=== PATIENT | female | born 1950 | race Caucasian/White ===

== ENCOUNTER 2024-10-12 12:20 | Day surgery (SDC) | payer MEDICARE ==
[~2024-10-12] VITALS: Ht 154.9 cm; Wt 54.9 kg
[~2024-10-12 12:20] MED LIST: CALC1TAB26 PO; D-50CAP PO; ESTR62CR VG; FERR28TA PO; LEVO75TA4 PO; OMEG12004 PO; SERT50TA29 PO; TURM500C3 PO; VITA100065 PO; VITATAB73 PO; ZOLO25TA PO
[2024-10-12] MEDS ORDERED: MIDAZOLAM INJ 2MG/2ML VIAL As Ordered ONE (14:32)
[2024-10-12] MEDS ORDERED: fentaNYL 100 MCG/2 ML INJECTION As Ordered ONE (14:32)
[2024-10-12] MEDS: LIDOCAINE 3.5 % 1ML OPHTH TOPICAL GEL OU ONE (14:46)
[2024-10-12] MEDS ORDERED: propofoL 200 MG/20 ML VIAL As Ordered ONE (15:05)
[2024-10-12] MEDS ORDERED: LIDOCAINE 2% 100MG/5ML SDV (FOR ANES.) As Ordered ONE (15:05)
[2024-10-12] MEDS: POVIDONE-IODINE 5% OPHTH PREP SOL 30ML As Ordered ONE (15:38)
[2024-10-12] MEDS: LIDOCAINE 2% W/EPINEPHRINE 20ML VIAL **PRES FREE As Ordered ONE (15:42)
[2024-10-12] MEDS: TOBRADEX OPHTH OINT 3.5 GM As Ordered ONE (15:44)
[2024-10-12] MEDS: TOBRAMYCIN SULF 1.2GM VIAL As Ordered ONE (15:47)
[2024-10-12] MEDS: TOBRADEX OPHTH SUSP 2.5 ML As Ordered ONE (15:49)
[2024-10-12 15:55] VITALS: BP 138/73; TEMP 97.6; O2SAT 98
== END 2024-10-12 16:25 | disposition home or self-care (01) ==
LOC: M SDC 12:20
PROVIDERS: ATTEND Ophthalmology
DX: H02.002 Unspecified entropion of right lower eyelid (principal); E03.9 Hypothyroidism, unspecified; R00.1 Bradycardia, unspecified; I49.8 Other specified cardiac arrhythmias; Z79.899 Other long term (current) drug therapy; Z79.890 Hormone replacement therapy; Z90.710 Acquired absence of both cervix and uterus; Z88.2 Allergy status to sulfonamides; Z88.8 Allergy status to other drugs, medicaments and biological substances; Z96.643 Presence of artificial hip joint, bilateral; Z90.89 Acquired absence of other organs
CPT/HCPCS: 67923; J2250; J3010; J3260